=== PATIENT | male | born 1995 | race Hispanic/Latino ===

== ENCOUNTER 2022-11-26 22:13 | Emergency (ER) | payer OTHER ==
[~2022-11-26] VITALS: Ht 157.5 cm; Wt 100.0 kg
[~2022-11-26 22:13] MED LIST: (None)3.5 GM OP; AUGMENTIN875TAB PO; CIPROFLOXACN500 MG PO; GENTAMICIN15 ML/BTL OP; NAPROSYN500 MG PO
[2022-11-26 23:01] VITALS: BP 140/89
== END 2022-11-26 23:13 | disposition home or self-care (01) | DRG 605 ==
LOC: ED 22:13
DX: S50.02XA Contusion of left elbow, initial encounter (principal); V53.5XXA Driver of pick-up truck or van injured in collision with car, pick-up truck or van in traffic accident, initial encounter

== ENCOUNTER 2022-12-28 10:34 | Emergency (ER) | payer OTHER ==
[~2022-12-28] VITALS: Ht 157.5 cm; Wt 74.8 kg
[2022-12-28 10:45] VITALS: BP 131/90
[2022-12-28 11:00] VITALS: BP 124/85
[2022-12-28 12:15] VITALS: BP 124/85
[2022-12-28] MEDS ORDERED: NAPROXEN375 MG PO (12:28)
== END 2022-12-28 12:30 | disposition home or self-care (01) | DRG 563 ==
LOC: ED 10:34
DX: S39.012A Strain of muscle, fascia and tendon of lower back, initial encounter (principal); V49.9XXA Car occupant (driver) (passenger) injured in unspecified traffic accident, initial encounter